=== PATIENT | female | born 1995 ===

== ENCOUNTER 2017-06-07 20:02 | Inpatient (IN) | payer MEDICAID ==
--- NOTE | 2017-06-07 20:07 | OBHP ---
Datetime: 06/07/2017 20:02 IP Adm Impression: Term, intrauterine IP Admit Plan: Admit to unit Admit Comment, IP Provider: 21 y/o @ 38.6 wks GA with intrahepatic cholestaiss of ref erred by clinic for deivery by 39 weeks as per MFM. pt dneies any lof, vb, ctx, +FM. pt reprot itchin g on and off somewhat alleviatd with ursodiol medicatoin. pt reports she is a late transfer of obtain ing care from [facility]. pt denies any other issues in Ante: GBS in urien as per records, late prental care transfer from 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 PMH: denies PSH: dene FHX DM: brother MEDS: PNV, Ursodiol 250mg daily NKDA SHX: negatieve etoh/tobacco/drugs A/P 21 y/o @ 38.6 wks GA for IOL secondary to intrahepatic cholestais of -admit to L+D -npo, IVF -Cervidil -pain managamenet prn -GBS prophylaxis -cont toco and efm Pelvic Type - PN: Adequate Extremities - PN: Normal Abdomen - PN: Normal Back - PN: Normal Breast - PN: Not Done Lungs - PN: Normal Heart - PN: Normal Thyroid - PN: Not Done Neurologic - PN: Normal HEENT - PN: Normal General - PN: Normal Weight - Estimated: 3300 Presentation-Admit: Vertex FHR - Baseline A Provider: 135 Membranes, Provider: Intact Contraction Comments Provider: irritabilty Gestation - Est Wks by US: 38.6 IP Hx Assessment: The History has been Reviewed and is Current EGA AdmitDate IP: 38.6 Vital Signs Provider: Reviewed; Within Normal Limits IP Chief Complaint: Other NICHD Variability Prov Fetus A: Moderate 6-25bpm FHR Category Provider Fetus A: Category I NICHD Decel Fetus A IP Provider: None Dilatation, Provider: 0 Effacement, Provider: 0 Station, Provider: -3 Genitourinary Exam: Normal DTRs - PN: Normal
[2017-06-07] MEDS ORDERED: Penicillin G 5 Million Unit Vial IVPB ONE ×2 (20:12→21:05)
--- NOTE | 2017-06-07 20:17 | OBADHP ---
Datetime: 06/07/2017 20:02 Admit Comment, IP Provider: 21 y/o @ 38.6 wks GA with intrahepatic cholestaiss of ref erred by clinic for deivery by 39 weeks as per MFM. pt dneies any lof, vb, ctx, +FM. pt reprot itchin g on and off somewhat alleviatd with ursodiol medicatoin. pt reports she is a late transfer of obtain ing care from [facility]. 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 PSH: dene FHX DM: brother MEDS: PNV, Ursodiol 250mg daily NKDA SHX: negatieve etoh/tobacco/drugs A/P 21 y/o @ 38.6 wks GA for IOL secondary to intrahepatic cholestais of -admit to L+D -npo, IVF -Cervidil -pain managamenet prn -GBS prophylaxis -cont toco and efm Pelvic Type - PN: Adequate Extremities - PN: Normal Abdomen - PN: Normal Back - PN: Normal Breast - PN: Not Done Lungs - PN: Normal Heart - PN: Normal Thyroid - PN: Not Done Neurologic - PN: Normal HEENT - PN: Normal General - PN: Normal Weight - Estimated: 3300 Presentation-Admit: Vertex FHR - Baseline A Provider: 135 Membranes, Provider: Intact Contraction Comments Provider: irritabilty Comments, ACOG Physical Exam: Abd: no excoriations, no rash Gestation - Est Wks by US: 38.6 IP Hx Assessment: The History has been Reviewed and is Current Vital Signs Provider: Reviewed; Within Normal Limits IP Chief Complaint: Other NICHD Variability Prov Fetus A: Moderate 6-25bpm FHR Category Provider Fetus A: Category I NICHD Decel Fetus A IP Provider: None Dilatation, Provider: 0 Effacement, Provider: 0 Station, Provider: -3 Genitourinary Exam: Normal DTRs - PN: Normal EGA AdmitDate IP: 38.6 IP Adm Impression: Term, intrauterine IP Admit Plan: Admit to unit
[2017-06-07] MEDS: Lactated Ringer's 1,000 ML IV SCH (20:30)
[2017-06-07 20:59] LABS: BASO # 0.1 K/uL (0.0-0.2); BASO % 0.8 % (0.0-2.0); EOS # 0.1 K/uL (0.0-0.7); EOS % 0.6 % (0.0-4.0); HEMATOCRIT 36.7 % (34.0-47.0); LYMPH # 2.4 K/uL (1.0-4.3); MEAN CELL VOLUME 89.4 fL (81.0-99.0); MEAN CORPUSCULAR HEMOGLOBIN 30.2 pg (27.0-31.0); MEAN CORPUSCULAR HGB CONC 33.8 g/dL (33.0-37.0); MEAN PLATELET VOLUME 11.5 fL (7.2-11.7); MONO # 0.6 K/uL (0.0-0.8); MONO % 5.9 % (0.0-10.0); NRBC % 0.1 % (0.0-2.0); RED CELL DISTRIBUTION WIDTH 13.6 % (11.5-14.5); WHITE BLOOD COUNT 10.1 K/uL (4.8-10.8)
[2017-06-07 21:04] LABS: RBC URINE < 1 /hpf (0-3); URINE BACTERIA RARE (<OCC); URINE BILIRUBIN NEGATIVE (NEGATIVE); URINE BLOOD NEGATIVE (NEGATIVE); URINE COLOR Yellow (YELLOW); URINE GLUCOSE (UA) NORMAL (Normal); URINE KETONE NEGATIVE (NEGATIVE); URINE LEUKOCYTE ESTERASE NEG Leu/uL (Negative); URINE PROTEIN NEGATIVE (NEGATIVE); URINE UROBILINOGEN NORMAL mg/dL (0.2-1.0); WBC URINE 1 /hpf (0-5)
[2017-06-07 21:09] LABS: CHLORIDE 100 mmol/L (98-107); POTASSIUM 3.8 mmol/L (3.6-5.2); SODIUM 130 mmol/L (132-148)
[2017-06-07 21:11] LABS: AST/SGOT 24 U/L (14-36); BILIRUBIN,TOTAL 1.5 mg/dL (0.2-1.3); CARBON DIOXIDE 18 mmol/L (22-30); GFR AFRICAN-AMERICAN > 60
[2017-06-07 21:12] LABS: ALB/GLOB RATIO 1.4 (1.0-2.1); ALKALINE PHOSPHATASE 316 U/L (38-126); ALT/SGPT 40 U/L (9-52); BLOOD UREA NITROGEN 12 mg/dL (7-17); CALCIUM 8.6 mg/dl (8.6-10.4); GLUCOSE,RANDOM 90 mg/dL (65-105); TOTAL PROTEIN 6.3 g/dL (6.3-8.3)
[2017-06-08] MEDS: Lactated Ringer's 1,000 ML IV SCH (03:45)
--- NOTE | 2017-06-08 07:28 | OBPN ---
Datetime: 06/08/2017 07:25 IP Progress Impression: Reassuring heart rate IP Procedures: Sterile Vag Exam Contraction Comments Provider: irregular Gestation - Est Wks by US: 39.0 Weight - Estimated: 3200 Presentation-Admit: Vertex IP Progress Note Comment: S-patient uncomfortbale with contractions O-VSS Afebrile FHT cat1 Percy irregular ctx sve 3/80/-2 A/P Patient being induced for cholestasis of . -took over care from dr gil -cervidil removed -start pitocin in1 hour -continue penicillins for gbs prophylaxis -monitor closely Vital Signs Provider: Reviewed; Within Normal Limits FHR Category Provider Fetus A: Category I Dilatation, Provider: 3 Effacement, Provider: 80 Station, Provider: -2 Datetime: 06/07/2017 20:02 Membranes, Provider: Intact FHR - Baseline A Provider: 135 NICHD Variability Prov Fetus A: Moderate 6-25bpm NICHD Decel Fetus A IP Provider: None
[2017-06-08] MEDS ORDERED: Bupivacaine 0.125%/FentaNYL 200 ML EPI ONE (07:53)
[2017-06-08] MEDS ORDERED: Oxytocin 30 UNIT 30 UNITS/500 ML BAG IV PRN (08:30)
[2017-06-08] MEDS ORDERED: Oxytocin 30 UNIT 30 UNITS/500 ML BAG IV ONE (08:39)
[2017-06-08] MEDS ORDERED: Lidocaine 2% Inj (20ml) ONE (12:12)
[2017-06-08] MEDS ORDERED: Benzocaine/Menthol 20%-0.5% Topical Spray (60 ml) TOP PRN (14:38)
--- NOTE | 2017-06-08 15:30 | OBDS ---
DELIVERY PERSONNEL Delivery Doctor: Curt More MD Looping Machine Operator: Jessica Tucker RN Anesthetist: Dr. Durbin MATERNAL INFORMATION Delivery Anesthesia: Epidural Estimated Blood Loss (ml): 700 Maternal Complications: None Provider Comments: Patient fully and dilated.Terminal decel noted.head +2.maternal exhaustion noted. Right mediolateral episiotomy done.Vacuum applied at flexion point.1 pull done for 5 seconds.Head no w and the vacuum deployed.The head delivered followed by the body and shoulders.Cord clamped and cut.Segement of cord taken for cord blood ph.cord blood collected.placenta spontaneously deliver ed.right sulcus tear, right mediolateral episiotomy, left periurethral laceration repiared with 2-0 chromic.Patient stable.Fundus firm.ebl 700cc Cord ph 7.28. LABOR SUMMARY EDC: 06/15/2017 00:00 No. Babies in Womb: 1 Attempted: No Labor Anesthesia: Epidural LABOR INFORMATION Cervical Ripening Agents: Cervidil (Annotations: REMOVED by Dr. More ) Group B Beta Strep: Positive (Annotations: +in urine) Antibiotics # of Doses: 3 Antibiotics Time of Last Dose: 1345 Steroids Given: None Reason Steroids Not Administered: Not Applicable MEMBRANES Membranes Rupture Method: Artificial Amniotic Fluid Color: Clear Amniotic Fluid Amount: Scant Amniotic Fluid Odor: Normal STAGES OF LABOR Stage 3 hrs: 0 Stage 3 min: 5 VAGINAL DELIVERY Episiotomy: Median Laceration Extension: N/A Laceration Type: Sulcus Laceration Repair: Yes Laceration Repair Note: right sulcus tear, right mediolateral episiotomy, left periurethral lacerati on repiared with 2-0 chromic Initial Vag Sponge Count: 10 Final Vag Sponge Count: 10 Initial Vag Sharps Count: 0 Final Vag Sharps Count: 3 Sponge Count Correct: Yes; Vaginal Sweep Performed Sharps Count Correct: Yes BABY A INFORMATION Delivery Date/Time: 06/08/2017 14:30 Method of Delivery: Vaginal Born in Route : No : N/A Forceps: N/A Vacuum Extraction: Successful Shoulder Dystocia : No SHOULDER DYSTOCIA BABY A Delivery Date/Time: 06/08/2017 14:30 PRESENTATION/POSITION BABY A Presentation: Cephalic Cephalic Presentation: Vertex Vertex Position: Left Occipital Anterior Breech Presentation: N/A PLACENTA INFORMATION BABY A Placenta Delivery Time : 06/08/2017 14:35 Placenta Method of Delivery: Spontaneous Placenta Status: Delivered SCORES BABY A Heart Rate 1 min: >100 bpm Resp Effort 1 min: Good Cry Reflex Irritability 1 min: Cough or Sneeze or Pulls Away Muscle Tone 1 min: Active Motion Color 1 min: Body [place], Extremities Blue Resuscitation Effort 1 min: Tactile Stimulation SCORE 1 MIN: 9 Heart Rate 5 min: >100 bpm Resp Effort 5 min: Good Cry Reflex Irritability 5 min: Cough or Sneeze or Pulls Away Muscle Tone 5 min: Active Motion Color 5 min: Body [place], Extremities Blue SCORE 5 MIN: 9 INFORMATION BABY A Gestational Age at Delivery: 39.0 Gestational Status: Term Infant Outcome : Liveborn Infant Condition : Stable Sex: Male IDENTIFICATION/MEDS BABY A ID Band Number: [id number] ID Band Location: Left Leg; Left Arm Sensor Applied: Yes Sensor Number: [id number] Sensor Location : Cord Clamp Vitamin K Given : Aquamephyton 1 mg IM; Left Thigh Erythromycin Given: Given Both Eyes WEIGHT/LENGTH BABY A Infant Birthweight (gms): 3385 Weight (lb): 7 Weight (oz): 7 Length Inches: 19.00 Infant Length cms: 48.3 CORD INFORMATION BABY A No. Cord Vessels: 3 Nuchal Cord : N/A Nuchal Cord Other: N/A True Knot: N/A Cord Blood Taken: Yes Banking/Donate Info: N/A
[2017-06-08] MEDS ORDERED: Oxycodone/Acetaminophen 5/325 mg Tab PO PRN (15:53)
[2017-06-08] MEDS: Oxycodone/Acetaminophen 5/325 mg Tab PO PRN (16:01)
[2017-06-09 07:59] LABS: BASO # 0.1 K/uL (0.0-0.2); MONO # 0.8 K/uL (0.0-0.8); MONO % 6.4 % (0.0-10.0)
[2017-06-09 08:08] LABS: BASO % 0.4 % (0.0-2.0); EOS % 0.3 % (0.0-4.0); LYMPH # 2.3 K/uL (1.0-4.3); LYMPH % 18.5 % (20.0-40.0); MEAN CELL VOLUME 90.2 fL (81.0-99.0); MEAN CORPUSCULAR HEMOGLOBIN 30.5 pg (27.0-31.0); MEAN CORPUSCULAR HGB CONC 33.8 g/dL (33.0-37.0); MEAN PLATELET VOLUME 11.1 fL (7.2-11.7); NRBC % 0.1 % (0.0-2.0); RED CELL DISTRIBUTION WIDTH 13.8 % (11.5-14.5); WHITE BLOOD COUNT 12.5 K/uL (4.8-10.8)
[2017-06-09] MEDS: Multiple Vitamins Tab PO SCH (10:40)
[2017-06-09] MEDS: Oxycodone/Acetaminophen 5/325 mg Tab PO PRN (10:41)
--- NOTE | 2017-06-09 18:36 | OBPPN ---
Datetime: 06/09/2017 06:57 PP Pain Prov: Within normal limits PP Nausea Prov: Denies PP Flatus Prov: Yes PP BM Prov: No PP Heart Prov: Normal PP Lungs Prov: Normal PP Abdomen/Uterus Prov: Normal PP Lochia Prov: Normal PP Extremities Prov: Normal PP Progress Prov: Normal PP Comments Phys Exam Prov: Abdomen: Soft, non-tender, fundus is firm and slightly below the umbilic us PP Impression Prov: Normal progression PP Plan Prov: Continue present management PP Progress Note Prov: Patient was seen and examined at bedside. Patient is doing well and pain is w ell-controlled. Patient is tolerating diet and ambulating without difficulty. Patient admits to mild lochia, urinating without difficulty, passing flatus. Patient denies fever, chills, nausea, vomiting, BM, calf-tenderness, chest pain, palpitations, SOB and dizziness. Patient is breast feeding. VS: f/u am Physical Examination: Gen: AAOx3, NAD Cardio: RRR, normal S1, S2 Pulm: CTA bilaterallly Abdomen: Soft, non-tender, fundus is firm and slightly below the umbilicus :Laceration is healing well Ext: No edema, no clubbing and no cyanosis Labs: 10.1>12.4/36.7<214, f/u am CBC A positive, rubella immune A/P: 21 yo 38 weeks and 6 days with intrahepatic cholestasis, s/p , PPD#1 1. Stable, Afebrile 2. Pain control: percocet and motrin 3. Encourage hydration and ambulation 4. Encourage breast feeding 5. Monitor for bowel function 6. Male : does not desires circumcision 7. Continue routine care 8. Anticipate discharge tomorrow 9. Plans discussed with attending Lindy Heart DO, PGY-1 dr costello agrees Vital Signs Provider PP: Reviewed; Within Normal Limits
[2017-06-10 08:13] VITALS: BP 103/67; PULSE 81; RESP 18; TEMP 97.8; O2SAT 99
[2017-06-10] MEDS: Multiple Vitamins Tab PO SCH (09:30)
[2017-06-10] MEDS ORDERED: Influenza Vaccine 60 mcg/0.5 mL SYR (4YR UP) IM ONE (10:00)
--- NOTE | 2017-06-10 12:34 | PCM.PSYCH ---
Initial Psychiatric Evaluation - Initial Psychiatric Evaluation Type of Admission: Voluntary Legal Status: Capacity Chief Complaint (in patient's own words): "I'm fine" History of Present Illness and Precipitating Events: Pt's seen, chart review.Case discussed Consultation was requested because of a above cut-off score on pp-depression scale. she claims she didn't understand the questions. This is a 21-year-old female from [facility], single, lives with her around [address] [place] [address] but she will return to [facility] next month. She lives with her parents in [facility] and is currently in school. The patient's 2 days and this is her first child, son. She says that her boyfriend who is the father of their child is not interested in providing for the child because he is undocumented and unemployment. She says she is not stressed about that because she will take her child to [facility] where she has support and family. She denies feeling depressed, suicidal, or other significant psych symptoms. She feels a little bit tired and anxious but she is future oriented. No drugs or alcohol. Past psych history: Denied Family psych history: Denied Medical history: Denied Current Medications: Active Medications Generic Name Dose Route Start Last Admin Trade Name Freq PRN Reason Stop Dose Admin Benzocaine/Menthol 0 ml 06/08/17 14:38 06/08/17 18:01 Dermoplast 20%-0.5% TOP 10 ml PRN PRN Administration Perineal Discomfort Docusate Sodium 100 mg 06/08/17 14:38 06/10/17 09:30 Colace PO 100 mg BID PRN Administration Constipation Ferrous Sulfate 325 mg 06/09/17 12:00 06/10/17 09:30 Feosol PO 325 mg DAILY MEENA Administration Oxytocin 30 units in 500 mls @ 2 mls/hr 06/08/17 08:30 06/08/17 09:00 Pitocin IV 2 mls/hr .Q24H PRN Administration Labor Protocol 0.002 UNIT/MIN Ibuprofen 600 mg 06/08/17 14:38 06/10/17 09:33 Motrin Tab PO 600 mg Q6 PRN Administration Pain, Mild (1-3) Multivitamins 1 tab 06/09/17 10:00 06/10/17 09:30 Hexavitamin PO 1 tab DAILY MEENA Administration Oxycodone/Acetaminophen 1 tab 06/08/17 15:53 06/09/17 20:43 Percocet 5/325 Mg Tab PO 06/11/17 15:54 1 tab Q4H PRN Administration Pain, moderate (4-7) Oxycodone/Acetaminophen 2 tab 06/08/17 15:53 06/09/17 10:41 Percocet 5/325 Mg Tab PO 06/11/17 15:54 2 tab Q4H PRN Administration Pain, severe (8-10) Past Psychiatric History - Past Psychiatric History Previous Treatment History: None Pertinent Medical Hx (Current Medical&Sleep Prob, Allergies): Allergies Allergy/AdvReac Type Severity Reaction Status Date / Time No Known Allergies Allergy Verified 06/07/17 20:12 Ibuprofen [Motrin Tab] 600 mg PO Q6 PRN #30 tab 06/10/17 Review of Systems - Neurological Neurological: UNREMARKABLE - Psychiatric Psychiatric: Abnormal Sleep Pattern. absent: Hallucinations, Homicidal Ideation , Suicidal Ideation Mental Status Examination - Personal Presentation Personal Presentation: Looks stated age - Affect Affect: Broad - Motor Activity Motor Activity: Calm - Reliability in Providing Information Reliability in Providing Information: Good - Speech Speech: Organized - Mood Mood: Anxious - Formal Thought Process Formal Thought Process: No Impairment - Cognitive Functions Orientation: Person, Place, Situation, Time Sensorium: Alert Attention/Concentration: Attentive Estimate of Intelligence: Average Judgement: Intact, as evidence by: Good judgement Memory: Recent intact, as evidence by: Ability to recall events of the day, Remote intact, as evidenced by: Abilit to recall sig. life events - Risk Risk: Other (child's father is not in the picture) - Strength & Assets Inventory Strength & Assets Inventory: Cooperative DSM 5 DX - DSM 5 DSM 5 Diagnosis: adjustment disorder with anxiety - Recommended/Plan of Treatment Treatment Recommendations and Plan of Treatment: patient is cleared psychiatrically Support given No need for treatment at this point 32 min
--- NOTE | 2017-06-10 23:48 | OBDCSUM ---
Datetime: 06/10/2017 08:03 Discharge Time: 06/10/2017 12:45 Follow up in weeks, Provider: 4 weeks Disch Referrals: None Discharge Comment, Provider: go to er if you have fever, severe pain, heavy bleeding or any otehr pr oblems
--- NOTE | 2017-06-10 23:48 | OBPPN ---
Datetime: 06/10/2017 07:00 PP Pain Prov: Within normal limits PP Nausea Prov: Denies PP Flatus Prov: Yes PP BM Prov: No PP Breasts Prov: Normal PP Heart Prov: Normal PP Lungs Prov: Normal PP Abdomen/Uterus Prov: Normal PP Lochia Prov: Normal PP Vulva/Perineum Prov: Normal PP CVA Tenderness Prov: Normal PP Extremities Prov: Normal PP C/S Incision Prov: Not Applicable PP Progress Prov: Normal PP Impression Prov: Normal progression PP Plan Prov: Discharge PP Progress Note Prov: Patient was seen and examined at bedside. Patient is doing well and pain is w ell-controlled. Patient is tolerating diet and ambulating without difficulty. Patient admits to mild lochia, urinating without difficulty, passing flatus. Patient denies fever, chills, nausea, vomiting, BM, calf-tenderness, chest pain, palpitations, SOB and dizziness. Patient is breast feeding. Per nu rse the patient scored a 12 on the depression screening. Patient states she is feeling well she just felt frustrated yesterday when the baby was contiuously crying and was having difficulty to breast f eed. She states she does not want to see anyone to speak with and would like to go home. VS: B/P 98/57; HR 72; Temp 98.2; 98% RA Physical Examination: Gen: AAOx3, NAD Cardio: RRR, normal S1, S2 Pulm: CTA bilaterallly Abdomen: Soft, non-tender, fundus is firm and slightly below the umbilicus :Laceration is healing well Ext: No edema, no clubbing and no cyanosis Labs: 10.1>12.4/36.7<214; 12.5>10.5/31.0 A positive, rubella immune A/P: 21 yo 38 weeks and 6 days with intrahepatic cholestasis, s/p , PPD#2 1. Stable, Afebrile 2. Pain control: percocet and motrin 3. Encourage hydration and ambulation 4. Encourage breast feeding 5. Male : does not desires circumcision 6. Psych Consult: Dr. Brooks --> help appreciated 7. Continue routine care 8. Disposition: Discharge home Nanette Crowley DO PGY-1 Patient examined.agree with resident exam, assessment and plan Vital Signs Provider PP: Reviewed; Within Normal Limits
== END 2017-06-10 12:45 | disposition home or self-care (01) | DRG 373 ==
LOC: C.EROB 20:02 → C.4D 20:12 → C.4M 06-08 17:52
PROVIDERS: ADMIT Obstetrics & Gynecology; ATTEND Obstetrics & Gynecology
PROC: 10D07Z6 Extraction of Products of Conception, Vacuum, Via Natural or Artificial Opening (ICD-10-PCS; principal; 2017-06-08)
PROC: 0W8NXZZ Division of Female Perineum, External Approach (ICD-10-PCS; 2017-06-08)
PROC: 10907ZC Drainage of Amniotic Fluid, Therapeutic from Products of Conception, Via Natural or Artificial Opening (ICD-10-PCS; 2017-06-08)
PROC: 3E0P7VZ Introduction of Hormone into Female Reproductive, Via Natural or Artificial Opening (ICD-10-PCS; 2017-06-08)
DX: O26.62 Liver and biliary tract disorders in childbirth (principal); O99.344 Other mental disorders complicating childbirth; F43.20 Adjustment disorder, unspecified; O99.824 Streptococcus B carrier state complicating childbirth; O75.81 Maternal exhaustion complicating labor and delivery; Z3A.38 38 weeks gestation of pregnancy; Z37.0 Single live birth